=== PATIENT | female | born 1970 | race American Indian/Alaskan Native ===

== ENCOUNTER 2016-07-19 11:01 | Outpatient (CLI) | payer OTHER ==
[2016-07-19] MEDS ORDERED: XYLOCAINE TOPICAL 4% TP ONE (11:26)
[2016-07-20] MEDS ORDERED: XYLOCAINE TOPICAL 4% TP ONE (08:17)
== END 2016-07-19 11:02 | disposition home or self-care (01) ==
LOC: WOUND 11:01
PROVIDERS: ATTEND Internal Medicine
DX: I87.311 Chronic venous hypertension (idiopathic) with ulcer of right lower extremity (principal); L97.911 Non-pressure chronic ulcer of unspecified part of right lower leg limited to breakdown of skin

== ENCOUNTER 2016-07-26 11:07 | Outpatient (CLI) | payer OTHER ==
[2016-07-26] MEDS ORDERED: XYLOCAINE TOPICAL 2% ONE (11:14)
[2016-07-26] MEDS ORDERED: XYLOCAINE TOPICAL 2% TP ONE (11:22)
== END 2016-07-26 11:08 | disposition home or self-care (01) ==
LOC: WOUND 11:07
PROVIDERS: ATTEND Podiatrist
DX: I87.311 Chronic venous hypertension (idiopathic) with ulcer of right lower extremity (principal); L97.912 Non-pressure chronic ulcer of unspecified part of right lower leg with fat layer exposed

== ENCOUNTER 2016-08-02 11:10 | Outpatient (CLI) | payer OTHER ==
[2016-08-02] MEDS ORDERED: XYLOCAINE 1% 20 mL ONE (11:52)
[2016-08-02] MEDS ORDERED: XYLOCAINE TOPICAL 2% TP ONE (12:04)
== END 2016-08-02 11:11 | disposition home or self-care (01) ==
LOC: WOUND 11:10
PROVIDERS: ATTEND Podiatrist
DX: I87.311 Chronic venous hypertension (idiopathic) with ulcer of right lower extremity (principal); L97.812 Non-pressure chronic ulcer of other part of right lower leg with fat layer exposed; J42 Unspecified chronic bronchitis

== ENCOUNTER 2016-08-09 10:59 | Outpatient (CLI) | payer OTHER ==
[2016-08-09] MEDS ORDERED: XYLOCAINE TOPICAL 2% ONE (11:19)
== END 2016-08-09 11:00 | disposition home or self-care (01) ==
LOC: WOUND 10:59
PROVIDERS: ATTEND Podiatrist
DX: I87.311 Chronic venous hypertension (idiopathic) with ulcer of right lower extremity (principal); L97.912 Non-pressure chronic ulcer of unspecified part of right lower leg with fat layer exposed

== ENCOUNTER 2016-08-23 11:02 | Outpatient (CLI) | payer OTHER ==
[2016-08-23] MEDS ORDERED: XYLOCAINE TOPICAL 4% TP ONE ×2 (11:49→15:26)
== END 2016-08-23 11:03 | disposition home or self-care (01) ==
LOC: WOUND 11:02
PROVIDERS: ATTEND Podiatrist
DX: I87.311 Chronic venous hypertension (idiopathic) with ulcer of right lower extremity (principal); L97.812 Non-pressure chronic ulcer of other part of right lower leg with fat layer exposed; Z72.89 Other problems related to lifestyle

== ENCOUNTER 2016-09-06 11:02 | Outpatient (CLI) | payer OTHER ==
[2016-09-06] MEDS ORDERED: XYLOCAINE TOPICAL 4% TP ONE ×2 (11:24→14:59)
== END 2016-09-06 11:03 | disposition home or self-care (01) ==
LOC: WOUND 11:02
PROVIDERS: ATTEND Podiatrist
DX: I87.311 Chronic venous hypertension (idiopathic) with ulcer of right lower extremity (principal); L97.821 Non-pressure chronic ulcer of other part of left lower leg limited to breakdown of skin

== ENCOUNTER 2016-09-13 11:04 | Outpatient (CLI) | payer OTHER ==
[2016-09-13] MEDS ORDERED: XYLOCAINE TOPICAL 2% ONE (11:24)
[2016-09-13] MEDS ORDERED: XYLOCAINE TOPICAL 2% TP ONE (12:41)
[2016-09-13] MEDS ORDERED: SODIUM CHLORIDE FLUSH SYRINGE 10 ML IV SCH (12:42)
== END 2016-09-13 11:05 | disposition home or self-care (01) ==
LOC: WOUND 11:04
PROVIDERS: ATTEND Podiatrist
DX: I87.311 Chronic venous hypertension (idiopathic) with ulcer of right lower extremity (principal); L97.812 Non-pressure chronic ulcer of other part of right lower leg with fat layer exposed
CPT/HCPCS: C5271; Q4102

== ENCOUNTER 2016-09-16 11:36 | Outpatient (CLI) | payer OTHER | END 2016-09-16 11:37 | disposition home or self-care (01) | LOC: WOUND 11:36 | PROVIDERS: ATTEND Podiatrist | DX: I87.311 Chronic venous hypertension (idiopathic) with ulcer of right lower extremity (principal); L97.812 Non-pressure chronic ulcer of other part of right lower leg with fat layer exposed | CPT/HCPCS: 99212; G0463 ==

== ENCOUNTER 2016-09-20 11:13 | Outpatient (CLI) | payer OTHER ==
[2016-09-20] MEDS ORDERED: XYLOCAINE TOPICAL 4% TP ONE (11:17)
== END 2016-09-20 11:14 | disposition home or self-care (01) ==
LOC: WOUND 11:13
PROVIDERS: ATTEND Podiatrist
DX: I87.311 Chronic venous hypertension (idiopathic) with ulcer of right lower extremity (principal); L97.912 Non-pressure chronic ulcer of unspecified part of right lower leg with fat layer exposed; J42 Unspecified chronic bronchitis; Z72.89 Other problems related to lifestyle

== ENCOUNTER 2016-09-27 11:04 | Outpatient (CLI) | payer OTHER ==
[2016-09-27] MEDS ORDERED: XYLOCAINE TOPICAL 2% ONE (11:32)
[2016-09-27] MEDS ORDERED: XYLOCAINE TOPICAL 2% TP ONE (11:50)
== END 2016-09-27 11:05 | disposition home or self-care (01) ==
LOC: WOUND 11:04
PROVIDERS: ATTEND Podiatrist
DX: I87.311 Chronic venous hypertension (idiopathic) with ulcer of right lower extremity (principal); L97.812 Non-pressure chronic ulcer of other part of right lower leg with fat layer exposed
CPT/HCPCS: C5271; Q4102

== ENCOUNTER 2016-10-04 11:12 | Outpatient (CLI) | payer OTHER ==
[2016-10-04] MEDS ORDERED: XYLOCAINE TOPICAL 4% TP ONE ×2 (11:35→14:09)
== END 2016-10-04 11:13 | disposition home or self-care (01) ==
LOC: WOUND 11:12
PROVIDERS: ATTEND Podiatrist
DX: I87.311 Chronic venous hypertension (idiopathic) with ulcer of right lower extremity (principal); L97.812 Non-pressure chronic ulcer of other part of right lower leg with fat layer exposed; L97.821 Non-pressure chronic ulcer of other part of left lower leg limited to breakdown of skin; Z72.89 Other problems related to lifestyle
CPT/HCPCS: 87075; 87116

== ENCOUNTER 2017-05-05 13:14 | Outpatient (CLI) | payer BC ==
[2017-05-05] MEDS ORDERED: XYLOCAINE MPF 2% INFILTRATI ONE (13:46)
[2017-05-05] MEDS ORDERED: XYLOCAINE TOPICAL 4% TP ONE (13:46)
[2017-05-05] MEDS ORDERED: XYLOCAINE TOPICAL 2% ONE (13:51)
== END 2017-05-05 13:15 | disposition home or self-care (01) ==
LOC: WOUND 13:14
PROVIDERS: ATTEND Podiatrist
DX: I87.312 Chronic venous hypertension (idiopathic) with ulcer of left lower extremity (principal); L97.822 Non-pressure chronic ulcer of other part of left lower leg with fat layer exposed; Z72.89 Other problems related to lifestyle
CPT/HCPCS: 11042; 87075; 87116; G0463

== ENCOUNTER 2017-05-15 13:59 | Outpatient (CLI) | payer BC ==
[2017-05-15] MEDS ORDERED: XYLOCAINE TOPICAL 4% TP ONE (14:08)
== END 2017-05-15 14:00 | disposition home or self-care (01) ==
LOC: WOUND 13:59
PROVIDERS: ATTEND Internal Medicine
DX: I87.312 Chronic venous hypertension (idiopathic) with ulcer of left lower extremity (principal); L97.822 Non-pressure chronic ulcer of other part of left lower leg with fat layer exposed; Z72.89 Other problems related to lifestyle
CPT/HCPCS: 99214; G0463

== ENCOUNTER 2017-05-19 10:17 | Outpatient (CLI) | payer BC ==
[2017-05-19] MEDS ORDERED: XYLOCAINE TOPICAL 2% ONE (10:25)
[2017-05-19] MEDS ORDERED: XYLOCAINE TOPICAL 4% TP ONE ×2 (10:26→10:39)
[2017-05-19] MEDS ORDERED: XYLOCAINE TOPICAL 2% TP ONE (10:39)
== END 2017-05-19 10:18 | disposition home or self-care (01) ==
LOC: WOUND 10:17
PROVIDERS: ATTEND Podiatrist
DX: I87.312 Chronic venous hypertension (idiopathic) with ulcer of left lower extremity (principal); L97.822 Non-pressure chronic ulcer of other part of left lower leg with fat layer exposed; Z72.89 Other problems related to lifestyle

== ENCOUNTER 2017-05-23 14:05 | Outpatient (CLI) | payer BC | END 2017-05-23 14:06 | disposition home or self-care (01) | LOC: WOUND 14:05 | PROVIDERS: ATTEND Surgery | DX: I87.312 Chronic venous hypertension (idiopathic) with ulcer of left lower extremity (principal); L97.822 Non-pressure chronic ulcer of other part of left lower leg with fat layer exposed; Z72.89 Other problems related to lifestyle | CPT/HCPCS: 99214; G0463 ==

== ENCOUNTER 2017-05-26 08:32 | Outpatient (CLI) | payer BC ==
[2017-05-26] MEDS ORDERED: XYLOCAINE TOPICAL 4% TP ONE (08:57)
[2017-05-26] MEDS ORDERED: AD OINTMENT TP ONE (09:56)
[2017-05-27] MEDS ORDERED: AD OINTMENT TP SCH (10:00)
== END 2017-05-26 08:33 | disposition home or self-care (01) ==
LOC: WOUND 08:32
PROVIDERS: ATTEND Podiatrist
DX: I87.312 Chronic venous hypertension (idiopathic) with ulcer of left lower extremity (principal); L97.822 Non-pressure chronic ulcer of other part of left lower leg with fat layer exposed; Z72.89 Other problems related to lifestyle
CPT/HCPCS: A6250

== ENCOUNTER 2017-05-30 14:05 | Outpatient (CLI) | payer BC | END 2017-05-30 14:06 | disposition home or self-care (01) | LOC: WOUND 14:05 | PROVIDERS: ATTEND Surgery | DX: I87.312 Chronic venous hypertension (idiopathic) with ulcer of left lower extremity (principal); L97.822 Non-pressure chronic ulcer of other part of left lower leg with fat layer exposed; Z72.89 Other problems related to lifestyle | CPT/HCPCS: 99214; G0463 ==

== ENCOUNTER 2017-06-09 14:15 | Outpatient (CLI) | payer BC ==
[2017-06-09] MEDS ORDERED: XYLOCAINE TOPICAL 4% TP ONE (14:31)
== END 2017-06-09 14:16 | disposition home or self-care (01) ==
LOC: WOUND 14:15
PROVIDERS: ATTEND Podiatrist
DX: I87.312 Chronic venous hypertension (idiopathic) with ulcer of left lower extremity (principal); L97.822 Non-pressure chronic ulcer of other part of left lower leg with fat layer exposed; Z72.89 Other problems related to lifestyle

== ENCOUNTER 2017-06-23 11:08 | Outpatient (CLI) | payer BC ==
[2017-06-23] MEDS ORDERED: XYLOCAINE TOPICAL 4% TP ONE (11:42)
== END 2017-06-23 11:09 | disposition home or self-care (01) ==
LOC: WOUND 11:08
PROVIDERS: ATTEND Podiatrist
DX: I87.312 Chronic venous hypertension (idiopathic) with ulcer of left lower extremity (principal); L97.822 Non-pressure chronic ulcer of other part of left lower leg with fat layer exposed; Z72.89 Other problems related to lifestyle

== ENCOUNTER 2017-07-07 13:39 | Outpatient (CLI) | payer BC ==
[2017-07-07] MEDS ORDERED: XYLOCAINE TOPICAL 4% TP ONE ×2 (13:53→13:58)
== END 2017-07-07 13:40 | disposition home or self-care (01) ==
LOC: WOUND 13:39
PROVIDERS: ATTEND Podiatrist
DX: I87.312 Chronic venous hypertension (idiopathic) with ulcer of left lower extremity (principal); L97.822 Non-pressure chronic ulcer of other part of left lower leg with fat layer exposed; Z72.89 Other problems related to lifestyle

== ENCOUNTER 2017-07-14 11:15 | Outpatient (CLI) | payer BC ==
[2017-07-14] MEDS ORDERED: XYLOCAINE TOPICAL 4% TP ONE (11:32)
[2017-07-14] MEDS ORDERED: XYLOCAINE 1% 20 mL ONE (11:32)
[2017-07-18] MEDS ORDERED: XYLOCAINE TOPICAL 4% TP ONE (12:59)
== END 2017-07-14 11:16 | disposition home or self-care (01) ==
LOC: WOUND 11:15
PROVIDERS: ATTEND Podiatrist
DX: I87.311 Chronic venous hypertension (idiopathic) with ulcer of right lower extremity (principal); L97.812 Non-pressure chronic ulcer of other part of right lower leg with fat layer exposed; Z72.89 Other problems related to lifestyle

== ENCOUNTER 2017-07-21 11:25 | Outpatient (CLI) | payer BC ==
[2017-07-21] MEDS ORDERED: XYLOCAINE TOPICAL 4% TP ONE (12:24)
== END 2017-07-21 11:26 | disposition home or self-care (01) ==
LOC: WOUND 11:25
PROVIDERS: ATTEND Podiatrist
DX: I87.312 Chronic venous hypertension (idiopathic) with ulcer of left lower extremity (principal); L97.812 Non-pressure chronic ulcer of other part of right lower leg with fat layer exposed; Z72.89 Other problems related to lifestyle

== ENCOUNTER 2017-08-04 11:09 | Outpatient (CLI) | payer BC ==
[2017-08-04] MEDS ORDERED: XYLOCAINE TOPICAL 4% TP ONE (12:08)
== END 2017-08-04 11:10 | disposition home or self-care (01) ==
LOC: WOUND 11:09
PROVIDERS: ATTEND Podiatrist
DX: I87.313 Chronic venous hypertension (idiopathic) with ulcer of bilateral lower extremity (principal); L97.811 Non-pressure chronic ulcer of other part of right lower leg limited to breakdown of skin; L97.822 Non-pressure chronic ulcer of other part of left lower leg with fat layer exposed; Z72.89 Other problems related to lifestyle
CPT/HCPCS: 97597

== ENCOUNTER 2017-08-25 11:34 | Outpatient (CLI) | payer BC | END 2017-08-25 11:35 | disposition home or self-care (01) | LOC: WOUND 11:34 | PROVIDERS: ATTEND Podiatrist | DX: I87.312 Chronic venous hypertension (idiopathic) with ulcer of left lower extremity (principal); L97.822 Non-pressure chronic ulcer of other part of left lower leg with fat layer exposed; Z72.89 Other problems related to lifestyle | CPT/HCPCS: 99213; G0463 ==